=== PATIENT | female | born 1960 | race Caucasian/White ===

== ENCOUNTER 2016-08-10 17:44 | Emergency (ER) | payer MEDICARE, MEDICAID ==
[~2016-08-10] VITALS: Ht 162.6 cm; Wt 70.0 kg
[2016-08-10 17:45] VITALS: Ht 162.6 cm; Wt 70.0 kg
--- NOTE | 2016-08-10 19:45 | RADRPT ---
PROCEDURE: XR Chest. CLINICAL INDICATION: Cough for 2 weeks. TECHNIQUE: Portable AP erect view of the chest was obtained. COMPARISON: None available. FINDINGS: The cardiomediastinal silhouette is within normal limits. The lungs are clear. There is no evidenc e for pleural effusion, pneumothorax or pulmonary vascular congestion. The osseous structures are i ntact with no evidence for acute abnormality. RPTAT:HJJR IMPRESSION: No evidence for acute intrathoracic pathology. Physician Marivel Date Time Electronically viewed and signed by Dk Lazaro Physician on 08/10/2016 19:45 JR/
--- NOTE | 2016-08-10 19:48 | ERD ---
ER Documentation Chief Complaint Date/Time DATE: 08/10/16 TIME: 19:45 Chief Complaint COUGH , CHEST CONGESTION X 2 WEEKS HPI This a 55-year-old female who presents to the emergency department today complaining of cough and chest congestion for the past 2 weeks. Patient states that she has multiple autoimmune disorders and started getting sick after her last Rituxan treatment. States she has been sick since 18 July. States that she saw her primary care physician on August 03 was diagnosed with bronchitis and pharyngitis and was given a Z-Santhosh and inhaler. States she was told to get a chest x-ray at that time but she did not do it. Patient states she has not had any improvement. States that her cough is worse at night. Patient states she feels some shortness of breath. States that she saw her licensed occupational therapist today and he told her to come to the emergency department for further evaluation. Denies any vomiting or diarrhea. ROS All systems reviewed and are negative except as per history of present illness. Medications Home Meds Active Scripts Fluticasone Propionate (Flonase Allergy Relief) 9.9 Ml [place].susp, 2 SPRAY NASAL DAILY, #1 BOTTLE TO EACH NOSTRIL Prov:VIOLA PADRON PA-C 08/10/16 Cetirizine Hcl* (Zyrtec*) 10 Mg Capsule, 10 MG PO DAILY, #14 TAB.CHEW Prov:VIOLA PADRON PA-C 08/10/16 Benzonatate* (Tessalon Perle*) 100 Mg Capsule, 100 MG PO Q8H Y for COUGH for 7 Days, CAP Prov:VIOLA PADRON PA-C 08/10/16 Allergies Allergies: Coded Allergies: aspirin (Verified Allergy, Unknown, SOB, 08/10/16) hydromorphone (Verified Allergy, Unknown, RASH, 08/10/16) Uncoded Allergies: PCN (Allergy, Unknown, HIVES, 08/10/16) PMhx/Soc Medical and Surgical Hx: pt denies Medical Hx, pt denies Surgical Hx History of Surgery: Yes (DEVIATED SEPTUM, C SECTION, 2 CARPAL TUNNELS, CHOLECYSTECTOMY) Anesthesia Reaction: No Hx Respiratory Disorders: Yes (SLEEP APNEA) Hx Cardiac Disorders: Yes (MITRAL VALVE PROLAPSE) Hx Psychiatric Problems: Yes (DEPRESSION) Hx Miscellaneous Medical Probl: Yes (FIBROMYLAGIA, JOSUE DSE, RAYNAUDS DSE , RHEUMATOID ARTHRITIS, OSTEOPOROS) Hx Alcohol Use: No Hx Substance Use: No Hx Tobacco Use: No Smoking Status: Never smoker Physical Exam Vitals Vital Signs Date Time Temp Pulse Resp B/P Pulse Ox O2 Delivery O2 Flow Rate FiO2 08/10/16 17:45 99.2 90 18 179/81 98 Physical Exam Const: No acute distress Head: Atraumatic Eyes: Normal Conjunctiva ENT: Normal External Ears, Nose and Mouth. Neck: Full range of motion..~ No meningismus. Resp: Clear to auscultation bilaterally. No absent breath sounds. No wheezing. Cardio: Regular rate and rhythm, no murmurs Abd: Soft, non tender, non distended. Normal bowel sounds Skin: No petechiae or rashes Back: No midline or flank tenderness Ext: No cyanosis, or edema. No erythema or warmth. Nontender gastroc Neur: Awake and alert Psych: Normal Mood and Affect Results 24 hrs DIAGNOSTIC IMAGING REPORT Patient: EUFEMIA HUTCHINSON : 1960 Age: 55 Sex: F MR #: [id number] DOS: 08/10/16 0000 Ordering MD: VIOLA PADRON PA-C Location: [facility] Room/Bed: PROCEDURE: XR Chest. CLINICAL INDICATION: Cough for 2 weeks. TECHNIQUE: Portable AP erect view of the chest was obtained. COMPARISON: None available. FINDINGS: The cardiomediastinal silhouette is within normal limits. The lungs are clear. There is no evidence for pleural effusion, pneumothorax or pulmonary vascular congestion. The osseous structures are intact with no evidence for acute abnormality. RPTAT:HJJR IMPRESSION: No evidence for acute intrathoracic pathology. Physician Marivel Date Time Electronically viewed and signed by Physician Marivel on 08/10/2016 19:45 JR/ CC: VIOLA PADRON PA-C Procedures/MDM This a 55-year-old female who presents to the emergency department today for cough, chest congestion for the past couple of weeks. Patient has a history of multiple autoimmune disorders specifically, lupus, Sjogren's, Josue's, rheumatoid arthritis, fibromyalgia, Ray nods. She is already taken a Z-Santhosh and inhaler as she was diagnosed by her primary care doctor for bronchitis and pharyngitis and she still reports no improvement. Given this I did obtain a chest x-ray. Chest x-ray shows no evidence for acute intrathoracic pathology. There is no evidence for pleural effusion, pneumothorax, pulmonary vascular congestion. Patient is afebrile and otherwise well-appearing. She is not tachycardic. Her oxygen saturation is 98% low suspicion for PE, pleural effusion, pneumothorax, pneumonia, abscess Discussed the patient with Dr. Ybarra given her multiple autoimmune disorders and he recommended an EKG EKG read and interpreted by Dr. Ybarra rate [address] elevation. No QT prolongation. Normal sinus rhythm. Low suspicion for acute SD, PE, pericarditis. Patient symptoms at this time is consistent with cough. May be due to allergic rhinitis versus bronchitis versus viral URI I have low suspicion for strep pharyngitis, peritonsillar abscess, retropharyngeal abscess, otitis media, PNA, sinusitis, abscess, meningitis, sepsis, or other acute infectious bacterial process. Patient be given a prescription for Tessalon Perles, Zyrtec and Flonase. Do not feel that she requires antibiotics at this time. Patient was instructed to follow back up with her primary care physician and licensed occupational therapist. At this time the patient is stable for discharge and outpatient management. They should follow up with their PCP in the next 1-2. They may return to the emergency department sooner if symptoms persist or worsen. Patient understood and agreed with the plan. Departure Diagnosis: Primary Impression: Cough Condition: Fair VIOLA PADRON PA-C Aug 10, 2016 19:48
[2016-08-10] MEDS ORDERED: CETI10CA PO (20:29)
[2016-08-10] MEDS ORDERED: BENZ100C70 PO (20:29)
[2016-08-10] MEDS ORDERED: FLUT9.9S NASAL (20:30)
[2016-08-10 20:42] VITALS: BP 139/88; PULSE 67; RESP 18; TEMP 98.3
== END 2016-08-10 20:42 | disposition home or self-care (01) ==
LOC: FTE 17:44
DX: R05 Cough (principal); R06.02 Shortness of breath
CPT/HCPCS: 71010; 93005